=== PATIENT | male | born 2000 | race Two or more races ===

== ENCOUNTER 2022-01-07 22:49 | Emergency (ER) | payer MEDICAID, OTHER ==
[~2022-01-07] VITALS: Ht 170.2 cm; Wt 61.2 kg
[2022-01-08 05:05] VITALS: BP 104/61
== END 2022-01-08 07:00 | disposition home or self-care (01) ==
LOC: ER 22:49
DX: S16.1XXA Strain of muscle, fascia and tendon at neck level, initial encounter (principal); S40.022A Contusion of left upper arm, initial encounter; V43.52XA Car driver injured in collision with other type car in traffic accident, initial encounter; Y93.89 Activity, other specified; Y92.488 Other paved roadways as the place of occurrence of the external cause; Y99.8 Other external cause status
CPT/HCPCS: 72040